=== PATIENT | male | born 1985 | race Caucasian/White ===

== ENCOUNTER 2017-11-13 18:13 | Inpatient (IN) | payer SELFPAY ==
[~2017-11-13] VITALS: Ht 175.3 cm; Wt 92.4 kg
[2017-11-13] MEDS ORDERED: SODIUM CHLORIDE 0.9% 1,000 ML IVB ONE (18:42)
[2017-11-13] MEDS ORDERED: MORPHINE SULF INJ 2 MG/ML SYRINGE 1ML IV ONE (18:45)
[2017-11-13] MEDS ORDERED: ONDANSETRON HCL 4 MG/2 ML VIAL IV ONE ×2 (18:45→22:00)
[2017-11-13] MEDS ORDERED: MORPHINE SULFATE 4 MG/ML SYR/VIAL ONE (19:09)
[2017-11-13 19:31] LABS: Basophils # (auto) 0 uL; Basophils % (auto) 0.1 % (0.0-2.0); Eosinophils # (auto) 0 uL; Eosinophils % (auto) 0.1 % (0.0-7.0); Hematocrit 42.8 % (41.0-53.0); Hemoglobin 14.8 g/dL (13.5-17.5); Lymphocytes # (auto) 0.9 uL; Mean Corpuscular Hemoglobin 30.6 pg (28.0-32.0); Mean Corpuscular Hgb Conc. 34.5 g/dL (32.0-36.0); Mean Corpuscular Volume 88.7 fL (80.0-100.0); Monocytes # (auto) 0.8 uL; Monocytes % (auto) 6.4 % (0.0-12.0); Neutrophils # (auto) 11.2 uL; Neutrophils % (auto) 86.4 % (37.0-80.0); Platelet Count (auto) 278 10^3/uL (140-450); Red Blood Cells 4.83 10^6/uL (4.5-5.90); Red Cell Distribution Width 12.9 % (11.8-14.3)
[2017-11-13 19:44] LABS: Magnesium 2.2 mg/dL (1.6-2.6)
[2017-11-13 19:49] LABS: Albumin 4.1 g/dL (3.4-5.0); BUN/Creatinine Ratio 11.3; Calcium 8.6 mg/dL (8.5-10.1); Potassium 3.9 mmol/L (3.5-5.1)
[2017-11-13 19:55] LABS: Bilirubin, Total 0.4 mg/dL (0.2-1.0); Total Protein 8.1 g/dL (6.4-8.2)
[2017-11-13] MEDS ORDERED: metroNIDAZOLE 500MG/100ML 100 ML IV ONE (20:15)
[2017-11-13] MEDS ORDERED: LORazepam 2MG/ML-1ML VIAL ONE (21:59)
[2017-11-13] MEDS ORDERED: MORPHINE SULFATE 4 MG/ML SYR/VIAL IV ONE (22:00)
[2017-11-13] MEDS ORDERED: LORazepam 2MG/ML-1ML VIAL IV ONE (22:00)
[2017-11-13 22:20] LABS: Urine Bacteria NONE SEEN /hpf (None Seen); Urine Blood TRACE /uL (Negative); Urine Specific Gravity 1.027 (1.001-1.035); Urine WBC 1 /hpf (0 - 3)
[2017-11-14] MEDS ORDERED: BENZOCAINE (DENTAL) 20 % SPRAY 60ML MT ONE (00:15)
[2017-11-14] MEDS ORDERED: COCAINE HCL 4% TOP SOL 4ML TOP ONE (00:26)
[2017-11-14] MEDS ORDERED: LORazepam 2MG/ML-1ML VIAL ONE (00:33)
[2017-11-14] MEDS ORDERED: metroNIDAZOLE 500MG/100ML 100 ML IV ONE (01:30)
[2017-11-14] MEDS ORDERED: ONDANSETRON HCL 4 MG/2 ML VIAL IV PRN (01:30)
[2017-11-14] MEDS ORDERED: MORPHINE SULF INJ 2 MG/ML SYRINGE 1ML IV PRN (01:30)
[2017-11-14] MEDS ORDERED: ACETAMINOPHEN 500 MG TAB PO PRN (01:30)
[2017-11-14] MEDS: SODIUM CHLORIDE 0.9% 1,000 ML IV SCH ×3 (05:08→20:09)
[2017-11-14] MEDS: metroNIDAZOLE 500MG/100ML 100 ML IV SCH ×3 (05:58→21:08)
[2017-11-14 07:22] LABS: Basophils # (auto) 0 uL; Basophils % (auto) 0.2 % (0.0-2.0); Eosinophils # (auto) 0 uL; Eosinophils % (auto) 0.3 % (0.0-7.0); Hematocrit 38.9 % (41.0-53.0); Hemoglobin 13.3 g/dL (13.5-17.5); Lymphocytes # (auto) 1.5 uL; Mean Corpuscular Hemoglobin 30.2 pg (28.0-32.0); Mean Corpuscular Hgb Conc. 34.2 g/dL (32.0-36.0); Mean Corpuscular Volume 88.2 fL (80.0-100.0); Monocytes # (auto) 0.9 uL; Monocytes % (auto) 8.2 % (0.0-12.0); Neutrophils % (auto) 78.3 % (37.0-80.0); Nucleated Red Blood Cells % 0.1 %; Platelet Count (auto) 254 10^3/uL (140-450); Red Blood Cells 4.41 10^6/uL (4.5-5.90); Red Cell Distribution Width 13.3 % (11.8-14.3); White Blood Cell 11.5 10^3/uL (4.4-10.8)
[2017-11-14 07:41] LABS: BUN/Creatinine Ratio 11.3; Potassium 3.7 mmol/L (3.5-5.1)
[2017-11-14] MEDS ORDERED: GASTROGRAFIN 120 ML SOL ONE (08:24)
[2017-11-14 09:00] VITALS: BP 141/82
[2017-11-14 10:05] VITALS: BP 141/82
[2017-11-14] MEDS: cefTRIAXone 1GM/10ml IVPUSH 10 ML IV SCH (10:28)
[2017-11-14 13:06] VITALS: BP 115/72
[2017-11-14] MEDS ORDERED: PANTOPRAZOLE 40 MG/10 ML VIAL IV ONE (13:45)
[2017-11-14 17:00] VITALS: BP 129/66
[2017-11-14 20:00] VITALS: BP 116/53
[2017-11-14] MEDS ORDERED: PANTOPRAZOLE 40 MG/10 ML VIAL IV SCH (22:00)
[2017-11-14 22:58] VITALS: BP 116/53
[2017-11-15] MEDS: metroNIDAZOLE 500MG/100ML 100 ML IV SCH (05:04)
[2017-11-15 05:28] VITALS: BP 114/60
[2017-11-15 06:08] LABS: Basophils # (auto) 0 uL; Basophils % (auto) 0.5 % (0.0-2.0); Eosinophils # (auto) 0.2 uL; Eosinophils % (auto) 2.7 % (0.0-7.0); Hematocrit 38.6 % (41.0-53.0); Lymphocytes # (auto) 1.5 uL; Mean Corpuscular Hemoglobin 30.1 pg (28.0-32.0); Mean Corpuscular Hgb Conc. 33.6 g/dL (32.0-36.0); Mean Corpuscular Volume 89.6 fL (80.0-100.0); Monocytes # (auto) 0.7 uL; Monocytes % (auto) 10.6 % (0.0-12.0); Neutrophils # (auto) 4.3 uL; Neutrophils % (auto) 64.2 % (37.0-80.0); Platelet Count (auto) 261 10^3/uL (140-450); Red Blood Cells 4.31 10^6/uL (4.5-5.90); Red Cell Distribution Width 13.5 % (11.8-14.3); White Blood Cell 6.7 10^3/uL (4.4-10.8)
[2017-11-15 06:40] LABS: Albumin 3.1 g/dL (3.4-5.0); BUN/Creatinine Ratio 14.5; Calcium 8.2 mg/dL (8.5-10.1); Potassium 4.2 mmol/L (3.5-5.1)
[2017-11-15 06:42] LABS: Bilirubin, Total 0.4 mg/dL (0.2-1.0); Total Protein 6.8 g/dL (6.4-8.2)
[2017-11-15 09:00] VITALS: BP 110/66
[2017-11-15] MEDS: cefTRIAXone 1GM/10ml IVPUSH 10 ML IV SCH (09:09)
[2017-11-15] MEDS: SODIUM CHLORIDE 0.9% 1,000 ML IV SCH (09:09)
== END 2017-11-15 13:50 | disposition home or self-care (01) | DRG 392 ==
LOC: ER 18:13 → OVERFLOW 18:14 → EAST 11-14 09:15
PROVIDERS: ADMIT Nurse Practitioner Family; ATTEND Family Medicine
DX: K29.00 Acute gastritis without bleeding (principal); F17.210 Nicotine dependence, cigarettes, uncomplicated; K46.9 Unspecified abdominal hernia without obstruction or gangrene; Z88.8 Allergy status to other drugs, medicaments and biological substances; Z91.041 Radiographic dye allergy status; Z72.89 Other problems related to lifestyle
CPT/HCPCS: 36415; 74176; 74250; 76705; 80048; 80053; 80320; 81001; 83690; 83735; 85025; 87040; 94761; 96361; 96365; 96375; C9113; J2405; J3490